=== PATIENT | female | born 1995 | race African-American/Black ===

== ENCOUNTER 2016-06-23 11:37 | Emergency (ER) | payer MEDICAID, OTHER ==
[~2016-06-23] VITALS: Wt 54.5 kg
--- NOTE | 2016-06-23 17:20 | RADRPT ---
PROCEDURE: Right knee x-ray CLINICAL INDICATION: Fall with generalized pain. TECHNIQUE: AP, lateral and oblique views of the right knee were obtained. COMPARISON: None FINDINGS: The soft tissues and bony elements are normal. No fracture or joint space effusion is noted. IMPRESSION: 1. Normal right knee. RPTAT:AAJJ Physician Shahid Date Time Electronically viewed and signed by Luciano Galarza Physician on 06/23/2016 17:20 GHASSAN/
--- NOTE | 2016-06-23 17:51 | RADRPT ---
PROCEDURE: CT Head without contrast. CLINICAL INDICATION: Lightheadedness and weakness TECHNIQUE: The study was performed utilizing a GE 64-slice multidetector CT scanner. Direct spiral axial CT images of the brain were obtained from the vertex to the skull base without contrast. The CTDI vol is 41.41 mGy and the DLP is 550.43 mGy-cm. The images were reviewed on a PACS workstation. COMPARISON: No prior studies are available for comparison. FINDINGS: The ventricles and cortical sulci are within normal limits. The hewitt-white matter differentiation i s maintained. No intra or extra-axial fluid collection or mass effect or shift in the midline struc tures is seen. The visualized paranasal sinuses, mastoid air cells, orbits, and calvarium are unrem arkable. IMPRESSION: Unremarkable CT of the head without contrast. RPTAT: HPNM Physician Austin Date Time Electronically viewed and signed by Physician Austin on 06/23/2016 17:50 /
[2016-06-23] MEDS ORDERED: NAPR-688 PO (18:25)
[2016-06-23 18:37] VITALS: BP 108/58; PULSE 93; RESP 18; TEMP 98.2
--- NOTE | 2016-06-23 18:37 | ERD ---
ER Documentation Chief Complaint Date/Time DATE: 06/23/16 TIME: 18:26 Chief Complaint weakness of legs this morning and unable to bear weight. no neuro def HPI This 21-year-old female is brought in by parents after joint her primary care doctor this morning for [place] in her legs. Because very tingling she fell down and struck her knee as well. Chest some right knee pain. She has had lower back pain for some time as well as some tingling. She's also had some headaches on and off in the past. She also said that she felt kind of lightheaded. Her primary care Center and he get a head CT to rule out other emergencies. I not she feels well. She has good strength of her legs have mild pain of the right knee. She has no nausea or vomiting and no palpitations. ROS All systems reviewed and are negative except as per history of present illness. Medications Home Meds Active Scripts Naproxen* (Naproxen*) 500 Mg Tablet, 500 MG PO BID Y for PAIN, #20 TAB Prov:RUBEN HOLLOWAY DO 06/23/16 Allergies Allergies: Coded Allergies: No Known Allergy (Unverified , 06/23/16) PMhx/Soc Medical and Surgical Hx: pt denies Medical Hx, pt denies Surgical Hx History of Surgery: No Anesthesia Reaction: No Hx Neurological Disorder: No Hx Respiratory Disorders: No Hx Cardiac Disorders: No Hx Psychiatric Problems: No Hx Miscellaneous Medical Probl: No Hx Alcohol Use: No Hx Substance Use: No Hx Tobacco Use: No Smoking Status: Never smoker Physical Exam Vitals Vital Signs Date Time Temp Pulse Resp B/P Pulse Ox O2 Delivery O2 Flow Rate FiO2 06/23/16 11:54 98.5 84 20 108/61 99 Physical Exam Const: [] No distress Head: Atraumatic Eyes: Normal Conjunctiva, EOMI, WEN ENT: Normal External Ears, Nose and Mouth. Neck: Full range of motion..~ No meningismus. Resp: Clear to auscultation bilaterally Cardio: Regular rate and rhythm, no murmurs Skin: No petechiae or rashes Back: No midline or flank tenderness Ext: No cyanosis, or edema, distal pulses intact bilateral lower extremities. 5 out of 5 strength distally and proximally bilateral lower extremities. Neur: Awake and alert and oriented 3, cranial nerves II through XII intact, no cerebellar deficits, gait normal. Psych: Normal Mood and Affect Results 24 hrs Laboratory Tests Test 06/23/16 17:40 Creatine Kinase 146IU/L Procedures/MDM Leg paresthesias with perceived weakness and chronic back pain. Patient had had back x-rays at her primary care doctor. During her ER visit she was able to walk without difficulty. Patient likely suffered a knee contusion her fall and knee x-rays negative for any kind of fracture. CT was performed and negative for any acute process. I also obtained a CK level to check for some kind of advanced muscle breakdown or unusual presentation of muscular dystrophy. CK level was normal. There are no signs of infection. They've the appropriate next step would be an outpatient MRI of her lumbar spine from her doctor. Must see an discharge her with naproxen. His excellent care primary care follow-up and given return precautions emergency room as well Head interpretation: Normal head CT. I see no acute process. See no hemorrhage no mass effect no midline shift no skull fractures Right knee x-ray interpretation: No fracture dislocation. I see no foreign bodies soft tissue swelling. Complete normal right knee x-ray. Departure Diagnosis: Primary Impression: Low back pain Additional Impression: Knee contusion Condition: Stable Patient Instructions: Fall Due To Dizziness, Weakness, Or Loss Of Balance Additional Instructions: Call your primary care doctor TOMORROW for an appointment during the next 2-3 days. Get a referall for an MRI of the low back and possible the brain. See the doctor sooner or return here if your condition worsens before your appointment time. RUBEN HOLOLWAY DO Jun 23, 2016 18:37
== END 2016-06-23 18:37 | disposition home or self-care (01) ==
LOC: E/R 11:37
DX: S39.92XA Unspecified injury of lower back, initial encounter (principal); S80.01XA Contusion of right knee, initial encounter; W18.09XA Striking against other object with subsequent fall, initial encounter; Y92.9 Unspecified place or not applicable
CPT/HCPCS: 70450; 73562; 82550; 82553; 84484; Z7502